=== PATIENT | male | born 1945 | race Asian ===

== ENCOUNTER 2017-03-01 09:54 | Day surgery (SDC) | payer MEDICARE, OTHER ==
[~2017-03-01] VITALS: Ht 180.3 cm; Wt 73.0 kg
[2017-03-01] VITALS (25 sets, daily range): BP systolic 117–150; BP diastolic 53–84; PULSE 56–79; RESP 8–30; Ht 180.3 cm; Wt 73.0 kg
[~2017-03-01 09:54] MED LIST: BENA10TA48 PO
[2017-03-01] MEDS ORDERED: METO25TA4 PO (10:53)
[2017-03-01] MEDS ORDERED: NIT4 SL (10:53)
[2017-03-01] MEDS ORDERED: ISOS30TA5 PO (10:53)
[2017-03-01] MEDS ORDERED: SIMV10TA PO (10:54)
[2017-03-01] MEDS ORDERED: ASPI-664 PO (10:54)
--- NOTE | 2017-03-01 11:35 | RADRPT ---
PROCEDURE: XR Chest. CLINICAL INDICATION: Preoperative TECHNIQUE: Single frontal view of the chest was obtained. COMPARISON: None FINDINGS: The heart is within normal limits. The thoracic aorta is calcified. The lungs are clear. There is no pleural effusion or pneumothorax. RPTAT: AA IMPRESSION: No acute disease. Calcified aorta consistent with atherosclerotic disease. .Casimiro Chavez MD, MD Date Time Electronically viewed and signed by .Casimiro Chavez MD, on 03/01/2017 11:35 .S/
[2017-03-01] MEDS ORDERED: VERAPAMIL 5 MG INJ ONE (11:38)
[2017-03-01] MEDS ORDERED: IODIXANOL LOCM 100 ML BTL ONE (11:38)
[2017-03-01] MEDS ORDERED: MIDAZOLAM 1 MG/ML 2 ML INJ ONE (11:38)
[2017-03-01] MEDS ORDERED: NITROGLYCERIN (IC) 100 MCG/ML INJ ONE (11:38)
[2017-03-01] MEDS ORDERED: HEPARIN 1000 UNITS/NS (A-LINE) 1,000 ML ONE (11:38)
[2017-03-01] MEDS ORDERED: HEPARIN 1000 UNITS/ML 10 ML INJ ONE (11:38)
[2017-03-01] MEDS ORDERED: FENTAnyl 50 MCG/ML VIAL ONE (11:38)
[2017-03-01] MEDS ORDERED: LIDOCAINE 1% (MDV) 20 ML INJ ONE (11:38)
[2017-03-01] MEDS ORDERED: IODIXANOL LOCM 50 ML BTL ONE (12:43)
[2017-03-01] MEDS ORDERED: TICAGRELOR 90 MG TABLET ONE (12:43)
[2017-03-01] MEDS ORDERED: ASPIRIN 325 MG TAB ONE (12:43)
[2017-03-01] MEDS ORDERED: SOD CHLORIDE 0.9% 1,000 ML IV SCH (12:58)
--- NOTE | 2017-03-01 12:58 | SIPON ---
Date/Time of Note Date/Time of Note DATE: 03/01/17 TIME: 12:57 Operative Report Preoperative Diagnosis 1.Abnl MPI 2.Chest pain Postoperative Diagnosis 1.Obstructive cad s/p PTCA/stent x 1 to ostial LAD Operation/Procedure Performed 1.C 2.PTCA/stent x 1 to ostial LAD Surgeon see signature line assistant community manager 1.angineh Anesthesia: moderate sedation Estimated blood loss: minimal Transfusion Required none Specimen NA Grafts/Implants none Complications none VICKY SEVILLA Mar 01, 2017 12:58
--- NOTE | 2017-03-01 12:58 | SIPON ---
Date/Time of Note Date/Time of Note DATE: 03/01/17 TIME: 12:57 Operative Report Preoperative Diagnosis 1.Abnl MPI 2.Chest pain Postoperative Diagnosis 1.Obstructive cad s/p PTCA/stent x 1 to ostial LAD Operation/Procedure Performed 1.C 2.PTCA/stent x 1 to ostial LAD Surgeon see signature line patient clerical assistant 1.angineh Anesthesia: moderate sedation Estimated blood loss: minimal Transfusion Required none Specimen NA Grafts/Implants none Complications none VICKY SEVILLA Mar 01, 2017 12:58
--- NOTE | 2017-03-01 12:58 | SIPON ---
Date/Time of Note Date/Time of Note DATE: 03/01/17 TIME: 12:57 Operative Report Preoperative Diagnosis 1.Abnl MPI 2.Chest pain Postoperative Diagnosis 1.Obstructive cad s/p PTCA/stent x 1 to ostial LAD Operation/Procedure Performed 1.C 2.PTCA/stent x 1 to ostial LAD Surgeon see signature line assistant department manager 1.angineh Anesthesia: moderate sedation Estimated blood loss: minimal Transfusion Required none Specimen NA Grafts/Implants none Complications none VICKY SEVILLA Mar 01, 2017 12:58
[2017-03-01] MEDS ORDERED: ACETAMINOPHEN 325 MG TAB PO PRN (13:00)
[2017-03-01] MEDS ORDERED: ZOLPIDEM 5 MG TAB PO PRN (13:00)
[2017-03-01] MEDS ORDERED: ONDANSETRON 4 MG INJ IV PRN (13:00)
[2017-03-01] MEDS ORDERED: OXYCODONE/ACETAMINOPHEN (5/325) TAB PO PRN (13:00)
[2017-03-01] MEDS ORDERED: NITROGLYCERIN (SL) 0.4 MG TAB SL PRN (16:30)
[2017-03-01] MEDS: METOPROLOL 25 MG TAB PO SCH (20:40)
[2017-03-01] MEDS: TICAGRELOR 90 MG TABLET PO SCH (20:46)
[2017-03-01] MEDS ORDERED: ATORVASTATIN 10 MG TAB PO SCH (21:00)
[2017-03-02] VITALS (16 sets, daily range): BP systolic 99–153; BP diastolic 41–85; PULSE 57–81; RESP 8–32
--- NOTE | 2017-03-02 01:17 | HP ---
DATE OF ADMISSION: 03/01/2017 CHIEF COMPLAINT AND HISTORY OF PRESENT ILLNESS: The patient is a 71-year-old gentleman with history of hypertension, dyslipidemia, has been having increasing shortness of breath on exertion and has o ccasional episodes of anginal chest pain. Patient underwent nuclear stress test which apparently wa s positive, I do not have the official result. The patient was brought into the hospital today and underwent left heart catheterization, underwent and stenting of ostial LAD. Patient currently has no chest pain and is breathing comfortably. Denies any headache, dizziness, syncope. No histo ry of abdominal pain, nausea, vomiting. No history of resting leg pain. No history of claudication . No history of any previous CVA. No history of congestive heart failure. REVIEW OF SYSTEMS: Other than mild discomfort at right wrist, rest of review of systems unremarkabl e. PAST SURGICAL HISTORY: Status post left eye cataract. ALLERGIES: SULFA. SOCIAL HISTORY: A [id number] history of smoking. FAMILY HISTORY: Patient's mother had heart disease and underwent bypass surgery. PHYSICAL EXAMINATION: GENERAL: The patient is conscious, awake, alert. VITAL SIGNS: Blood pressure 130/68, pulse 64, respirations 15, O2 sat 100% on room air. The patien t has a temperature of 98.4. HEENT: Atraumatic, normocephalic. Conjunctivae and lids normal. Oropharynx clear. NECK: Supple. No mass, no thyromegaly. CHEST: Fairly clear. CARDIOVASCULAR: S1, S2 normal. No murmur, gallop or rub. ABDOMEN: Soft, nondistended, nontender. Bowel sounds present. EXTREMITIES: No leg edema. Pedal pulses palpable. SKIN: Without acute rash or ulcer. NEUROLOGIC: The patient is awake, alert, oriented with no gross focal deficit. LABORATORY DATA: WBC 7.1, hemoglobin 11.5, platelets 171. Sodium 144, potassium 4.3, BUN 22, creat inine 1, glucose 122. AST 20, ALT 36, alkaline phosphatase 78, LDL 61. IMPRESSION: 1. Coronary artery disease, status post percutaneous coronary intervention and stenting of ostial l eft anterior descending. 2. Hypertension. 3. Dyslipidemia. PLAN: Patient admitted in ICU. Patient will be given IV fluid as per protocol. Patient will also be started on aspirin and Brilinta. In addition, the patient will be continued on Imdur, Lotensin, metoprolol and statin. We will do followup BMP tomorrow. Dictated By: TRACIE MORROW/JEREMIAS Conf#: [id number] DID#: [id number] CC: VICKY SEVILLA MD;*EndCC*
--- NOTE | 2017-03-02 02:56 | CARRPT ---
DATE OF PROCEDURE: 03/01/2017 TYPE OF PROCEDURE: 1. Left heart catheterization. 2. Coronary angiography. 3. Percutaneous transluminal coronary angioplasty with placement of Xience drug-eluting stent x1 to ostial LAD, 3.5 x 15 mm. 4. Moderate conscious sedation. 5. Measure left ventricular end diastolic pressure. ATTENDING PHYSICIAN: Vicky Montero MD REFERRING PHYSICIAN: Dr. Chow INDICATION: Chest pain refractory to medical therapy with positive anterior ischemia by nuclear sca n, high risk marker for cardiovascular events. TYPE OF ANESTHESIA: Conscious and local. BRIEF HISTORY: Mr. Browne is a 71-year-old male with history of hypertension, dyslipidemia, quest ionable prior PTCA and stent placement, yesterday had complaints of substernal chest pain and subseq uently had a cardiac stress test revealing anterior ischemia. Given these findings, the patient ref erred for and presents today in order to undergo a left heart catheterization to assess for the poss ibility of significant obstructive coronary artery disease leading to his symptoms of chest pain and subsequent positive stress test findings. DESCRIPTION OF PROCEDURE: After informed consent was obtained, the patient was brought to the [facility] cardiac catheterization lab where his right radial area was prepped and drap ed in usual fashion. Lidocaine 2% was infiltrated into the right radial area in order to achieve ad equate anesthesia. Using modified Seldinger technique, the radial artery was cannulated and a 6-[facility] arterial sheath was placed. A 5-[place] JL3.5 catheter was used to cannulate the left main coron stephanie ostium with contrast injection, multiple views of the left coronary arterial system obtained. J L3.5 was removed over a guidewire, and a JR4 was used to cannulate the right coronary arterial ostiu m. With contrast injection, multiple views of the right coronary arterial system were obtained. Th e JR4 was then used to subsequently cross the aortic valve. Left ventricular end-diastolic pressure measured and pullback across the aortic valve to assess for significant gradient, which there was n ot. Subsequently, at this time, given the findings of significant obstructive lesion, we moved dire ctly into an interventional procedure. Patient had an ACT checked, was given an additional 3000 uni ts of heparin in order to achieve an adequate ACT. A Q3 guide was used to cannulate the left main coronary ostium. A 0.014 Balance Middleweight guidewire was passed distal to the lesion. The ostial LAD lesion was pretreated with a 3.0 x 12 mm balloon up to 14 atmospheres. The balloon was r emoved and the lesion was stented with a 3.5 x 15 mm drug-eluting stent deployed at 14 atmospheres, post-dilated with the stent delivery system up to 16 atmospheres. Stent delivery balloon was remove d. Followup angiogram was obtained revealing excellent result with deployment of the stent and JEFF 3 flow throughout the vessel, no signs of complication or perforation, and no significant effect on the patient's ostial circumflex. Subsequently, at this time, the patient's interventional guide an d guidewires were removed. The patient was given Brilinta 180 and aspirin 325. This completed the procedure. There were no noted complications. FINDINGS: Coronary angiography: Left main, 4 mm, no significant stenoses. LAD proximally is a 3.5 mm vessel and has an ostial 90% stenosis and a questionable stent distal to this, with no significant in-stent restenosis; I am sure it is a stent. The remainder of the LAD is free of significant focal stenose s. Circumflex proximally is a 3.5 mm vessel and the circ continuation AV groove is free of signific ant focal stenoses. The patient has an obtuse marginal 2.5 mm mid branching with a 60% stenosis. T he distal circumflex is a dominant vessel and therefore gives off a left-sided PDA approximately 2 m m with a high-grade stenosis approximately 90% and additional proximal branching obtuse marginals x2 vessels to each with about 70% to 80% stenosis. The patient's right coronary artery proximal ly is a 2.5 mm vessel and nondominant vessel, no significant focal stenoses. Measurement of left ventricular end-diastolic pressure 29 to 30. PTCA and stent placement: Prior to PTCA and stent placement in the ostial LAD, the patient had 90% ostial stenosis. Post-PTCA and stent placement the patient had no residual stenosis, JEFF 3 flow th roughout the vessel and no signs of complication including perforation or dissection. TOTAL FLUOROSCOPY TIME: 10.2 minutes. TOTAL CONTRAST: 180 mL. IMPRESSION: 1. Two-vessel obstructive coronary artery disease involving ostial left anterior descending and dif fuse stenoses of the patient's dominant left-sided circumflex, obtuse marginal, left-sided PDA, stat us post successful percutaneous transluminal coronary angioplasty and stent placement x1 to ostial l eft anterior descending. 2. Elevated left heart filling pressures, LVEDP of 29 to 30. 3. No significant aortic stenosis by gradient. RECOMMENDATIONS: In light of procedure findings at this time would: 1. Maintain patient on aspirin 81 mg 1 tab p.o. daily for indefinite. 2. Brilinta 90 mg 1 tab p.o. b.i.d. times at least 1 year. 3. Maximize medical management. 4. Aggressive risk factor reduction. 5. The patient will be admitted to the PACU for post-intervention observation and continued managem ent of his presenting symptoms. Dictated By: VICKY RODRIGUEZ/JEREMIAS Conf#: [id number] DID#: [id number] CC: CHOW;*EndCC*
[2017-03-02] MEDS: METOPROLOL 25 MG TAB PO SCH (08:53)
[2017-03-02] MEDS: TICAGRELOR 90 MG TABLET PO SCH (08:58)
[2017-03-02] MEDS ORDERED: ISOSORBIDE MONONITRATE(SR)30 MG TAB PO SCH (09:00)
[2017-03-02] MEDS ORDERED: BENAZEPRIL 10 MG TAB PO SCH (09:00)
[2017-03-02] MEDS ORDERED: ASPIRIN (EC) 81 MG TAB PO SCH (09:00)
--- NOTE | 2017-03-02 10:07 | CONS ---
Date/Time of Note Date/Time of Note DATE: 03/02/17 TIME: 09:54 Assessment/Plan Assessment/Plan Chief Complaint/Hosp Course IMP: 1.s/p PTCA/stent x 1 to ostial LAD 2.HTN 3.HL 4. Abnl MPI-anterior ischemia Recc: -Tele -add AM troponin -ambulate patient -Continue asa/brilinta -Continue BB/statin/imdur.ACEI -D/C planning today with f/u with me monday 2:00pm Problems: Consultation Date/Type/Reason Admit Date/Time 03/01/2017 Initial Consult Date 03/01/2017 Type of Consultation: Cardiology Reason for Consultation s/p stent Referring Provider: LAN PRADO MD Exam/Review of Systems Vital Signs Vitals Vital Signs Date Time Temp Pulse Resp B/P Pulse Ox O2 Delivery O2 Flow Rate FiO2 03/02/17 09:00 81 14 153/80 97 Room Air 03/02/17 07:00 98.0 Intake and Output 03/01/17 03/01/17 03/02/17 15:00 23:00 07:00 Intake Total 410 ml 570 ml 0 ml Output Total 250 ml 550 ml 250 ml Balance 160 ml 20 ml -250 ml Exam Review of Systems: CONSTITUTIONAL: No fevers, chills. PULMONARY: No sob CARDIOVASCULAR: No chest pain/palpitations GASTROINTESTINAL: No nausea/vomiting. GENITOURINARY: No hematuria/dysuria. MUSCULOSKELETAL: No myagias/arthalgias. PSYCHIATRIC: The patient denies depression. NEUROLOGIC: No weakness Constitutional: alert Psych: no complaints Head: normocephalic ENMT: mucosa pink and moist Neck: jvd (9 cm water), supple Respiratory: diminished breath sounds Cardiovascular: regular rate and rhythm Gastrointestinal: non-tender, soft Musculoskeletal: muscle tone (normal) Extremities: edema (none) Neurological: other (No focal deficits) Results Result Diagram: 03/02/17 0505 03/02/17 0505 Results 24 hrs Laboratory Tests Test 03/01/17 10:54 03/01/17 10:55 03/02/17 05:05 Bedside Glucose 120 White Blood Count 7.1 7.3 Red Blood Count 3.90 L 3.81 L Hemoglobin 11.5 L 10.9 L Hematocrit 35.5 L 34.2 L Mean Corpuscular Volume 91.0 89.8 Mean Corpuscular Hemoglobin 29.5 28.6 L Mean Corpuscular Hemoglobin Concent 32.4 31.9 L Red Cell Distribution Width 12.7 12.8 Platelet Count 171 167 Mean Platelet Volume 10.5 H 11.2 H Neutrophils % 62.4 66.9 Lymphocytes % 28.2 21.2 Monocytes % 7.1 8.7 Eosinophils % 1.8 2.2 Basophils % 0.4 0.7 Nucleated Red Blood Cells % 0.0 0.0 Neutrophils # 4.5 4.9 Lymphocytes # 2.0 1.5 Monocytes # 0.5 0.6 Eosinophils # 0.1 0.2 Basophils # 0.0 0.1 Nucleated Red Blood Cells # 0.0 0.0 Prothrombin Time 13.4 Prothrombin Time Ratio 1.0 INR International Normalized Ratio 1.02 Activated Partial Thromboplast Time 26.3 Sodium Level 144 142 Potassium Level 4.3 4.1 Chloride Level 106 106 Carbon Dioxide Level 31 27 Anion Gap 11 13 Blood Urea Nitrogen 22 H 20 Creatinine 1.02 0.93 Glucose Level 122 131 Calcium Level 9.3 8.7 Total Bilirubin 1.3 Direct Bilirubin 0.00 Indirect Bilirubin 1.3 H Aspartate Amino Transf (AST/SGOT) 20 Alanine Aminotransferase (ALT/SGPT) 36 Alkaline Phosphatase 78 Total Protein 7.3 Albumin 3.9 Globulin 3.40 H Albumin/Globulin Ratio 1.14 Triglycerides Level 68 Cholesterol Level 116 LDL Cholesterol, Calculated 61 HDL Cholesterol 41 Cholesterol/HDL Ratio 2.8 Medications Medications Current Medications Aspirin (Halfprin) 81 mg DAILY PO Last administered on 03/02/17 08:51; Admin Dose 81 MG; Start 03/02/17 at 09:00 Ticagrelor (Brilinta) 90 mg BID PO Last administered on 03/02/17 08:58; Admin Dose 90 MG; Start 03/01/17 at 21:00 Acetaminophen (Tylenol Tab) 650 mg Q4H PRN PO NON-CARDIAC PAIN LEVEL 1-3; Start 03/01/17 at 13:00 Oxycodone/ Acetaminophen (Percocet (5/ 325)) 1 tab Q4H PRN PO REPORTED NON- CARDIAC PAIN 4-7; Start 03/01/17 at 13:00 Ondansetron HCl (Zofran Inj) 4 mg Q4H PRN IV NAUSEA AND/OR VOMITING; Start at 13:00 Benazepril HCl (Lotensin) 10 mg DAILY PO Last administered on 03/02/17 08:53 ; Admin Dose 10 MG; Start 03/02/17 at 09:00 Isosorbide Mononitrate (Imdur) 30 mg DAILY PO Last administered on 03/02/17 08:54; Admin Dose 30 MG; Start 03/02/17 at 09:00 Metoprolol Tartrate (Lopressor) 25 mg BID PO Last administered on 03/02/17 08 :53; Admin Dose 25 MG; Start 03/01/17 at 21:00 Nitroglycerin (Nitroglycerin (Sl Tab) 0.4 Mg) 0.4 tab [id number] PRN SL CHEST PAIN; Start 03/01/17 at 16:30 Atorvastatin Calcium (Lipitor) 10 mg DAILY@21 PO Last administered on 20:39; Admin Dose 10 MG; Start 03/01/17 at 21:00 VICKY SEVILLA Mar 02, 2017 10:07
[2017-03-02] MEDS ORDERED: DOCU-144 PO (11:39)
[2017-03-02] MEDS ORDERED: OXYC-438 PO (11:39)
[2017-03-02] MEDS ORDERED: PANT40TA3 PO (11:39)
[2017-03-02] MEDS ORDERED: TICA90TA PO (11:39)
--- NOTE | 2017-03-02 11:54 | DS ---
Date/Time of Note Date/Time of Note DATE: 03/02/17 TIME: 11:54 Discharge Summary Admission/Discharge Info Admit Date/Time Discharge Date/Time Patient Condition: Stable Hospital Course IMP: 1.s/p PTCA/stent x 1 to ostial LAD 2.HTN 3.HL 4. Abnl MPI-anterior ischemia Recc: -Tele -add AM troponin -ambulate patient -Continue asa/brilinta -Continue BB/statin/imdur.ACEI -D/C planning today with f/u with me monday 2:00pm Home Meds Active Scripts Pantoprazole* (Protonix*) 40 Mg Tablet., 40 MG PO DAILY, #30 TAB Prov:SHANELLE HOWARD 03/02/17 Docusate Sodium* (Colace*) 100 Mg Capsule, 100 MG PO BID, #30 CAP Prov:SHANELLE HOWARD 03/02/17 Oxycodone HCl/Acetaminophen (Oxycodone-Acetaminophen 5-325) 1 Each Tablet, 1 TAB PO Q6 Y for REPORTED NON-CARDIAC PAIN 4-7, #7 TAB Prov:SHANELLE HOWARD 03/02/17 Ticagrelor* (Brilinta*) 90 Mg Tablet, 90 MG PO BID for 30 Days, TAB Prov:SHANELLE HOWARD 03/02/17 Reported Medications Simvastatin* (Zocor*) 10 Mg Tablet, 10 MG PO QHS, #30 TAB 03/01/17 Aspirin (Low Dose Aspirin) 81 Mg Tablet.dr, 81 MG PO DAILY, #30 TAB 03/01/17 Metoprolol Tartrate* (Lopressor*) 25 Mg Tablet, 25 MG PO BID, #60 TAB 03/01/17 Nitroglycerin* (Nitrostat*) 0.4 Mg Tab.subl, 0.4 MG SL Q5MIN Y for CHEST PAIN, BOTTLE 03/01/17 Isosorbide Mononitrate* (Isosorbide Mononitrate*) 30 Mg Tab.er.24h, 30 MG PO DAILY, TAB 03/01/17 Benazepril Hcl* (Benazepril Hcl*) 10 Mg Tablet, 10 MG PO DAILY 11/24/10 Primary Care Provider Eduardo Caruso Time spent on discharge: < 30 minutes Pending Labs Laboratory Tests Test 03/02/17 05:05 White Blood Count 7.310^3/ul (4.8-10.8) Red Blood Count 3.8110^6/ul (4.70-6.10) Hemoglobin 10.9g/dl (14.0-18.0) Hematocrit 34.2% (42.0-52.0) Mean Corpuscular Volume 89.8fl (82.0-101.0) Mean Corpuscular Hemoglobin 28.6pg (29.0-33.0) Mean Corpuscular Hemoglobin Concent 31.9g/dl (32.0-37.0) Red Cell Distribution Width 12.8% (11.5-14.5) Platelet Count 94366^3/UL (140-415) Mean Platelet Volume 11.2fl (7.4-10.4) Neutrophils % 66.9% (39.0-77.0) Lymphocytes % 21.2% (15.0-51.0) Monocytes % 8.7% (0.0-11.0) Eosinophils % 2.2% (0.0-7.0) Basophils % 0.7% (0.0-2.0) Nucleated Red Blood Cells % 0.0/100WBC (0.0-0.0) Neutrophils # 4.910^3/ul (1.6-7.5) Lymphocytes # 1.510^3/ul (0.8-2.9) Monocytes # 0.610^3/ul (0.3-0.9) Eosinophils # 0.210^3/ul (0.0-0.5) Basophils # 0.110^3/ul (0.0-0.1) Nucleated Red Blood Cells # 0.010^3/ul (0.0-0.0) Sodium Level 142mmol/L (135-144) Potassium Level 4.1mmol/L (3.5-5.1) Chloride Level 106mmol/L (97-110) Carbon Dioxide Level 27mmol/L (21-31) Anion Gap 13 (8-16) Blood Urea Nitrogen 20mg/dl (7-20) Creatinine 0.93mg/dl (0.61-1.24) Glucose Level 131mg/dl (70-220) Calcium Level 8.7mg/dl (8.4-10.2) Troponin I < 0.012ng/ml (0.00-0.12) SHANELLE HOWARD Mar 02, 2017 11:54
--- NOTE | 2017-03-02 12:02 | PDOCDIS ---
Discharge Instructions CONDITION Patient Condition: Stable HOME CARE INSTRUCTIONS: Special Diet: Low Fat ACTIVITY: Activity Restrictions: Slowly Increase Activity Rest between Activity Avoid heavy lifting Do not Drive Do not operate Machinery Do not operate Power Tool Avoid Heavy Housework Bathing Restrictions: FOLLOW UP/APPOINTMENTS Follow-up Plan FU with Primary x 1 week FU with Cardiology as recommended. Call 911 or go to the nearest hospital if symptoms get worse. Patient and family verbalized understanding dc instructions. Dw Dr Mccann/ staff SHANELLE HOWARD Mar 02, 2017 12:02
--- NOTE | 2017-03-02 18:30 | RADRPT ---
Vent Rate: 58 bpm RR Interval: 0 msec [place] Interval: 146 msec QRS Duration: 80 msec QT Interval: 384 msec QTC Interval: 376 msec P-R-T [place]: 75 - 72 - [address] elevation, consider early repolarization, pericarditis, or injury Abnormal ECG Electronically Signed By: Miguel Montero [id number]
--- NOTE | 2017-03-02 18:30 | RADRPT ---
Vent Rate: 58 bpm RR Interval: 0 msec [place] Interval: 146 msec QRS Duration: 80 msec QT Interval: 384 msec QTC Interval: 376 msec P-R-T [place]: 75 - 72 - [address] elevation, consider early repolarization, pericarditis, or injury Abnormal ECG Electronically Signed By: Miguel Montero [id number]
--- NOTE | 2017-03-02 18:30 | RADRPT ---
Vent Rate: 58 bpm RR Interval: 0 msec IN Interval: 146 msec QRS Duration: 80 msec QT Interval: 384 msec QTC Interval: 376 msec P-R-T [place]: 75 - 72 - [address] elevation, consider early repolarization, pericarditis, or injury Abnormal ECG Electronically Signed By: Miguel Montero [id number]
--- NOTE | 2017-03-02 18:32 | RADRPT ---
Vent Rate: 66 bpm RR Interval: 0 msec IN Interval: 150 msec QRS Duration: 82 msec QT Interval: 370 msec QTC Interval: 387 msec P-R-T [place]: 65 - 54 - 71 degrees Sinus rhythm with marked sinus arrhythmia Early repolarization Otherwise normal ECG Electronically Signed By: Miguel Montero [id number]
--- NOTE | 2017-03-02 18:32 | RADRPT ---
Vent Rate: 66 bpm RR Interval: 0 msec [place] Interval: 150 msec QRS Duration: 82 msec QT Interval: 370 msec QTC Interval: 387 msec P-R-T [place]: 65 - 54 - 71 degrees Sinus rhythm with marked sinus arrhythmia Early repolarization Otherwise normal ECG Electronically Signed By: Miguel Montero [id number]
--- NOTE | 2017-03-02 18:32 | RADRPT ---
Vent Rate: 66 bpm RR Interval: 0 msec ID Interval: 150 msec QRS Duration: 82 msec QT Interval: 370 msec QTC Interval: 387 msec P-R-T [place]: 65 - 54 - 71 degrees Sinus rhythm with marked sinus arrhythmia Early repolarization Otherwise normal ECG Electronically Signed By: Miguel Montero [id number]
== END 2017-03-02 12:30 | disposition home or self-care (01) ==
LOC: SDS 09:54 → CCL 09:54 → GIL 12:57 → SDS 12:57 → ICU 12:58 → UNDOADMIN 12:58 → CCL 03-02 12:30
PROVIDERS: ATTEND Internal Medicine
DX: I25.10 Atherosclerotic heart disease of native coronary artery without angina pectoris (principal); I10 Essential (primary) hypertension; E78.5 Hyperlipidemia, unspecified; Z88.2 Allergy status to sulfonamides
CPT/HCPCS: 71010; 80048; 80053; 80061; 82962; 84484; 85025; 85610; 85730; 87081; 93005; 93458; C1725; C1876; C1887; J1644; J2250; J3010; Q9967